=== PATIENT | male | born 1950 | race Caucasian/White ===

== ENCOUNTER → 2020-09-21 | Day surgery (SDC) | payer MEDICAID, MEDICARE ==
[2020-09-19 15:49] VITALS: BMI 28.7
[~2020-09-21] MED LIST: LACTATED RINGERS 1,000 ML IV SCH; LIDOCAINE 1% (10MG/ML) FOR IV START INTRADERMA PRN
[2020-09-21 10:33] VITALS: TEMP 97.4
--- NOTE | 2020-09-21 11:12 | P.PCN ---
Date of Procedure: 09/21/20 Procedure(s) Performed: BRIEF HISTORY: Patient is a 69-year-old pleasant male scheduled for an elective colonoscopy as a part of surveillance of long-standing history of Crohn's disease. He remains in clinical remission PROCEDURE PERFORMED: Colonoscopy with random biopsies. PREOPERATIVE DIAGNOSIS: Long-standing history of Crohn's disease. IV sedation per Anesthesia. PROCEDURE: After informed consent was obtained, the patient, was brought into the endoscopy unit. IV sedation was administered by Anesthesia under continuous monitoring. Digital rectal examination was normal. Initially the Olympus CF-160 flexible video colonoscope was then inserted in the rectum, gradually advanced into the cecum without any difficulty. Careful examination was performed as the scope was gradually being withdrawn. Ileocecal valve and the appendiceal orifice were visualized and appeared normal. Prep was excellent. Mucosa of the cecum, ascending colon, transverse colon, descending colon, sigmoid colon, and rectum appeared normal. Random biopsies were done. Scattered sigmoid diverticulosis seen. Retroflexion was performed in the rectum and no lesions were seen. The patient tolerated the procedure well. IMPRESSION: Normal-appearing colon from rectum to cecum with no evidence of colitis or colorectal neoplasia . Scattered left-sided diverticulosis. RECOMMENDATIONS: Findings of this examination were discussed with the patient his family. He was advised to follow with the biopsy results. If there was no evidence of dysplasia he can have a repeat colonoscopy in 5 years.
[2020-09-21 11:37] VITALS: BP 158/89; PULSE 66; RESP 18
== END ==
LOC: ORWHC2ENDO 09:45
PROVIDERS: ATTEND Internal Medicine Gastroenterology
DX: Z12.11 Encounter for screening for malignant neoplasm of colon (principal); K57.30 Diverticulosis of large intestine without perforation or abscess without bleeding; K50.90 Crohn's disease, unspecified, without complications; I48.91 Unspecified atrial fibrillation; Z91.040 Latex allergy status; Z88.2 Allergy status to sulfonamides; Z91.018 Allergy to other foods; Z88.8 Allergy status to other drugs, medicaments and biological substances; Z79.899 Other long term (current) drug therapy; Z98.890 Other specified postprocedural states; Z90.89 Acquired absence of other organs
CPT/HCPCS: 45380; 88305

== ENCOUNTER 2021-09-06 03:03 | Emergency (ER) | payer MEDICAID, MEDICARE ==
[2021-09-06 03:12] VITALS: RESP 18; TEMP 98.2
--- NOTE | 2021-09-06 03:21 | ED ---
Chest Pain HPI - General Chief Complaint: Chest Pain Stated Complaint: Chest Pain Time Seen by Provider: 09/06/21 03:15 Source: patient, EMS Mode of arrival: EMS Limitations: no limitations - Related Data Home Medications Medication Instructions Recorded Confirmed Verapamil Sr [Isoptin Sr] 180 mg PO BID 07/23/16 09/19/20 Vitamin B Complex 1 each PO DAILY 09/19/20 09/19/20 Allergies Allergy/AdvReac Type Severity Reaction Status Date / Time Sulfa (Sulfonamide Allergy Severe Anaphylaxis Verified 09/06/21 03:12 Antibiotics) sulfasalazine Allergy Severe Anaphylaxis Verified 09/06/21 03:12 [From Azulfidine] cortisone [Cortisone] Allergy Unknown Verified 09/06/21 03:12 Pork/Porcine Containing AdvReac Severe Nausea Verified 09/06/21 03:12 Products [Pork] Review of Systems ROS Statement: Those systems with pertinent positive or pertinent negative responses have been documented in the HPI. ROS Other: All systems not noted in ROS Statement are negative. EKG Findings - EKG Comments: EKG Findings:: EKG shows rate of 81 MA 160 QRS 80 QTC 446 Past Medical History Past Medical History: Atrial Fibrillation Additional Past Medical History / Comment(s): crohn's, arrhythmia, tachycardia, hx kidney stone, left eye astigmatism, "elevated white count", hiatal hernia, gout, SVT History of Any Multi-Drug Resistant Organisms: None Reported Past Surgical History: Back Surgery, Orthopedic Surgery, Tonsillectomy Additional Past Surgical History / Comment(s): laminectomy, brain-subdural hematoma, left knee surgery, left shoulder x 2(rotator cuff, ligament repair), rusty cataracts, surgery for twisted bowel Past Anesthesia/Blood Transfusion Reactions: Previous Problems w/ Anesthesia Additional Past Anesthesia/Blood Transfusion Reaction / Comment(s): "arrhythmia" one time after shoulder surgery Past Psychological History: No Psychological Hx Reported Smoking Status: Never smoker Past Alcohol Use History: Occasional Past Drug Use History: None Reported - Past Family History Mother Family Medical History: No Reported History General Exam Limitations: no limitations Course Vital Signs 09/06/21 09/06/21 03:08 05:12 Temperature 98.2 F Pulse Rate 80 74 Respiratory 18 18 Rate Blood Pressure 151/95 127/82 O2 Sat by Pulse 98 98 Oximetry Disposition Clinical Impression: SVT (supraventricular tachycardia) Disposition: HOME SELF-CARE Condition: Undetermined Instructions (If sedation given, give patient instructions): Supraventricular Tachycardia (ED) Is patient prescribed a controlled substance at d/c from ED?: No Referrals: None,Stated [Primary Care Provider] - 1-2 days
[2021-09-06 03:34] LABS: Basophils # (A) 0.1 k/uL (0-0.2); Basophils % (A) 1 %; Eosinophils # (A) 0.4 k/uL (0-0.7); Eosinophils % (A) 4 %; Lymphocytes # (A) 2.8 k/uL (1.0-4.8); Lymphocytes % (A) 28 %; MCH 29.4 pg (25.0-35.0); MCHC 33.4 g/dL (31.0-37.0); MCV 88.2 fL (80.0-100.0); Mean Platelet Volume 7.5; Monocytes # (A) 1.2 k/uL (0-1.0); Monocytes % (A) 13 %; Neutrophils # (A) 4.9 k/uL (1.3-7.7); Neutrophils % (A) 51 %; Platelet Count 307 k/uL (150-450); RBC 4.77 m/uL (4.30-5.90); RDW 12.5 % (11.5-15.5); WBC 9.7 k/uL (3.8-10.6)
[2021-09-06 03:43] LABS: ALT 32 U/L (4-49); AST 31 U/L (17-59); African American GFR (CKD) >90 (>60 ml/min/1.73 sqM); Albumin 3.9 g/dL (3.5-5.0); Alkaline Phosphatase 109 U/L (38-126); Anion Gap 7 mmol/L; Blood Urea Nitrogen 17 mg/dL (9-20); Calcium 9.5 mg/dL (8.4-10.2); Carbon Dioxide 21 mmol/L (22-30); Chloride 106 mmol/L (98-107); Glucose 114 mg/dL (74-99); Lipase 340 U/L (23-300); Non-African American GFR(CKD) 85 (>60 ml/min/1.73 sqM); Potassium 4.4 mmol/L (3.5-5.1); Sodium 134 mmol/L (137-145); Total Bilirubin 0.4 mg/dL (0.2-1.3); Total Protein 6.7 g/dL (6.3-8.2)
--- NOTE | 2021-09-06 03:49 | XR ---
EXAMINATION TYPE: XR chest 2V DATE OF EXAM: 09/06/2021 COMPARISON: 12/27/2014 HISTORY: Chest pain TECHNIQUE: 2 views FINDINGS: There is no heart failure nor confluent pneumonic infiltrate. Costophrenic angles are clear . There are chest leads. Bony thorax is intact. IMPRESSION: No active cardiopulmonary disease. Normal heart. No adverse change.
[2021-09-06 04:06] LABS: INR 0.9 (<1.2); Partial Thromboplastin Time 22.9 sec (22.0-30.0); Prothrombin Time 10.1 sec (9.0-12.0)
[2021-09-06 05:32] VITALS: BP 127/82
[2021-09-06] MEDS ORDERED: VERAPAMIL SR 180 MG TABLET.ER PO STA (05:53)
[2021-09-06 06:03] VITALS: PULSE 72
== END 2021-09-06 06:03 | disposition home or self-care (01) ==
LOC: EC 03:03
DX: I47.1 Supraventricular tachycardia (principal); I48.91 Unspecified atrial fibrillation; Z88.1 Allergy status to other antibiotic agents; Z87.442 Personal history of urinary calculi; Z90.89 Acquired absence of other organs
CPT/HCPCS: 36415; 71046; 80053; 83690; 83735; 83880; 84484; 85025; 85379; 85610; 85730; 93005; 99285